=== PATIENT | female | born 1960 | race Caucasian/White ===

== ENCOUNTER 2017-05-28 11:01 | Emergency (ER) | payer MEDICARE, MEDICAID ==
[~2017-05-28] VITALS: Ht 152.4 cm; Wt 115.2 kg
[2017-05-28] MEDS ORDERED: KETOROLAC 30 MG/ML VIAL IVP ONE (11:15)
[2017-05-28] MEDS ORDERED: NS IV 1000 ML 1,000 ML IV SCH (11:15)
--- NOTE | 2017-05-28 11:17 | ED Abdominal Pain ---
General Chief Complaint: Abdominal/GI Problems Stated Complaint: LOWER STOMACH PAIN Source of Information: Patient Exam Limitations: No Limitations History of Present Illness Date Seen by Provider: May 28, 2017 Time Seen by Provider: 11:15 Initial Comments To ER per private vehicle with lower abdominal pain that began on 05/25. She denies fevers chills or nausea. She saw her primary care provider for this yesterday and had CBC, CMP, urinalysis and abdominal x-ray done. She states all of these were normal except for the CBC which showed her white blood cells to be slightly elevated. They did suggest the possibility of diverticulitis though she's never had this before. Pain is worse today rated at 7 out of 10. She presents to the emergency room. She's never had this pain before. She's had a complete hysterectomy, appendectomy, cholecystectomy. Timing/Duration: 3-4 Days Severity/Quality: Moderate Location: Suprapubic Radiation: No Radiation Allergies and Home Medications Allergies Coded Allergies: Penicillins (Verified Allergy, Unknown, 05/28/17) cefixime (Verified Allergy, Unknown, 05/28/17) Review of Systems Constitutional: see HPI, No chills, No fever EENTM: No Symptoms Reported Respiratory: No Symptoms Reported Cardiovascular: No Symptoms Reported Gastrointestinal: See HPI, Abdominal Pain, Denies Constipated, Denies Diarrhea , Denies Nausea, Denies Vomiting Genitourinary: No Symptoms Reported Musculoskeletal: no symptoms reported Skin: no symptoms reported Psychiatric/Neurological: No Symptoms Reported Endocrine: No Symptoms Reported Past Wkyxavg-Gmvdwe-Wqoaqc Hx Patient Social History Recent Foreign Travel: No Contact w/Someone Who Travel: No Physical Exam Vital Signs VS - Last 72 Hours, by Label 05/28/17 11:05 Temp 98.8 Pulse 82 Resp 18 B/P (MAP) 149/85 (106) Pulse Ox 95 Capillary Refill : General Appearance: WD/WN, no apparent distress HEENT: PERRL/EOMI, normal ENT inspection Neck: non-tender, full range of motion Respiratory: no respiratory distress, no accessory muscle use Cardiovascular: regular rate, rhythm, no murmur Gastrointestinal: normal bowel sounds, non tender, soft Extremities: normal range of motion, non-tender Neurologic/Psychiatric: alert, normal mood/affect, oriented x 3 Skin: normal color, warm/dry Progress/Results/Core Measures Results/Orders Lab Results Laboratory Tests Test 05/28/17 11:10 05/28/17 11:18 Range/Units White Blood Count 13.4 H 4.3-11.0 10^3/uL Red Blood Count 4.76 4.35-5.85 10^6/uL Hemoglobin 14.9 11.5-16.0 G/DL Hematocrit 44 35-52 % Mean Corpuscular Volume 92 80-99 FL Mean Corpuscular Hemoglobin 31 25-34 PG Mean Corpuscular Hemoglobin Concent 34 32-36 G/DL Red Cell Distribution Width 13.3 10.0-14.5 % Platelet Count 379 130-400 10^3/uL Mean Platelet Volume 9.2 7.4-10.4 FL Neutrophils (%) (Auto) 60 42-75 % Lymphocytes (%) (Auto) 28 12-44 % Monocytes (%) (Auto) 9 0-12 % Eosinophils (%) (Auto) 3 0-10 % Basophils (%) (Auto) 1 0-10 % Neutrophils # (Auto) 8.0 H 1.8-7.8 X 10^3 Lymphocytes # (Auto) 3.7 1.0-4.0 X 10^3 Monocytes # (Auto) 1.2 H 0.0-1.0 X 10^3 Eosinophils # (Auto) 0.5 H 0.0-0.3 10^3/uL Basophils # (Auto) 0.1 0.0-0.1 10^3/uL Sodium Level 137 135-145 MMOL/L Potassium Level 4.1 3.6-5.0 MMOL/L Chloride Level 105 98-107 MMOL/L Carbon Dioxide Level 20 L 21-32 MMOL/L Anion Gap 12 5-14 MMOL/L Blood Urea Nitrogen 10 7-18 MG/DL Creatinine 0.82 0.60-1.30 MG/DL Estimat Glomerular Filtration Rate > 60 BUN/Creatinine Ratio 12 Glucose Level 122 H 70-105 MG/DL Calcium Level 9.1 8.5-10.1 MG/DL Total Bilirubin 0.3 0.1-1.0 MG/DL Aspartate Amino Transf (AST/SGOT) 15 5-34 U/L Alanine Aminotransferase (ALT/SGPT) 31 0-55 U/L Alkaline Phosphatase 103 40-136 U/L Total Protein 7.2 6.4-8.2 GM/DL Albumin 3.9 3.2-4.5 GM/DL Urine Color YELLOW Urine Clarity SLIGHTLY CLOUDY Urine pH 5 5-9 Urine Specific [place] 1.010 L 1.016-1.022 Urine Protein NEGATIVE NEGATIVE Urine Glucose (UA) NEGATIVE NEGATIVE Urine Ketones NEGATIVE NEGATIVE Urine Nitrite NEGATIVE NEGATIVE Urine Bilirubin NEGATIVE NEGATIVE Urine Urobilinogen NORMAL NORMAL MG/DL Urine Leukocyte Esterase NEGATIVE NEGATIVE Urine RBC (Auto) 1+ H NEGATIVE Urine RBC NONE /HPF Urine WBC NONE /HPF Urine Squamous Epithelial Cells 0-2 /HPF Urine Crystals NONE /LPF Urine Bacteria TRACE /HPF Urine Casts NONE /LPF Urine Mucus NEGATIVE /LPF Urine Culture Indicated NO My Orders Orders - MARSHALL MORRIS APRN Cbc With Automated Diff (05/28/17 11:13) Comprehensive Metabolic Panel (05/28/17 11:13) Ua Culture If Indicated (05/28/17 11:13) Saline Lock/Iv-Start (05/28/17 11:13) Ct Abdomen/Pelvis W (05/28/17 11:13) Ns Iv 1000 Ml (Sodium Chloride 0.9%) (05/28/17 11:15) Ketorolac Injection (Toradol Injection) (05/28/17 11:15) Iohexol Injection (Omnipaque 350 Mg/Ml 1 (05/28/17 11:45) Ns (Ivpb) (Sodium Chloride 0.9% Ivpb Bag (05/28/17 11:45) Ciprofloxacin Tablet (Cipro Tablet) (05/28/17 12:15) Metronidazole Tablet (Flagyl Tablet) (05/28/17 12:15) Hydrocodone/Apap 5/325 Tablet (Lortab 5 (05/28/17 12:15) Medications Given in ED Current Medications Medications Dose Ordered Sig/Heather Route Start Time Stop Time Status Last Admin Dose Admin Iohexol 100 ml ONCE ONCE IV 05/28/17 11:45 05/28/17 12:00 DC 05/28/17 11:55 100 ML Ketorolac Tromethamine 15 mg ONCE ONCE IVP 05/28/17 11:15 05/28/17 11:16 DC 05/28/17 11:25 15 MG Sodium Chloride 100 ml ONCE ONCE IV 05/28/17 11:45 05/28/17 12:00 DC 05/28/17 11:55 100 ML Vital Signs/I&O Vital Sign - Last 12Hours 05/28/17 11:05 Temp 98.8 Pulse 82 Resp 18 B/P (MAP) 149/85 (106) Pulse Ox 95 Departure Impression Impression: Primary Impression: Sigmoid diverticulitis Disposition: 01 HOME, SELF-CARE Condition: Stable Departure-Patient Inst. Decision time for Depature: 12:16 Referrals: JERO GARNER MD (PCP/Family) Primary Care Physician Patient Instructions: Diverticulitis (DC), Diverticulosis Add. Discharge Instructions: 1. Antibiotics as directed 2. Nausea medication and pain medication as directed. Return to ER for any fevers or worsening symptoms 3. Follow-up with your doctor next week for recheck. All discharge instructions reviewed with patient and/or family. Voiced understanding. Scripts Docusate Sodium (Colace) 100 Mg Capsule 100 MG PO DAILY, #14 CAP Prov: MARSHALL MORRIS RECRUITING COORDINATOR 05/28/17 Metronidazole (Metronidazole) 500 Mg Tablet 500 MG PO TID, #21 TAB Prov: MARSHALL MORRIS RECRUITING COORDINATOR 05/28/17 Ciprofloxacin HCl (Cipro) 500 Mg Tablet 500 MG PO BID PRN, #14 TAB Prov: MARSHALL MORRIS RECRUITING COORDINATOR 05/28/17 MARSHALL MORRIS RECRUITING COORDINATOR May 28, 2017 11:16
[2017-05-28 11:20] LABS: BASOPHILS # (AUTO) 0.1 10^3/uL (0.0-0.1); BASOPHILS % (AUTO) 1 % (0-10); EOSINOPHILS # (AUTO) 0.5 10^3/uL (0.0-0.3); EOSINOPHILS % (AUTO) 3 % (0-10); HEMATOCRIT 44 % (35-52); HEMOGLOBIN 14.9 G/DL (11.5-16.0); LYMPHOCYTES # (AUTO) 3.7 X 10^3 (1.0-4.0); LYMPHOCYTES % (AUTO) 28 % (12-44); MEAN CORPUSCULAR HEMOGLOBIN 31 PG (25-34); MEAN CORPUSCULAR HGB CONC 34 G/DL (32-36); MEAN CORPUSCULAR VOLUME 92 FL (80-99); MEAN PLATELET VOLUME 9.2 FL (7.4-10.4); MONOCYTES # (AUTO) 1.2 X 10^3 (0.0-1.0); MONOCYTES % (AUTO) 9 % (0-12); NEUTROPHILS % (AUTO) 60 % (42-75); PLATELET COUNT 379 10^3/uL (130-400); RED BLOOD COUNT 4.76 10^6/uL (4.35-5.85); RED CELL DISTRIBUTION WIDTH 13.3 % (10.0-14.5); WHITE BLOOD COUNT 13.4 10^3/uL (4.3-11.0)
[2017-05-28 11:38] LABS: ALANINE AMINOTRANSFERASE 31 U/L (0-55); ALBUMIN 3.9 GM/DL (3.2-4.5); ALKALINE PHOSPHATASE 103 U/L (40-136); BILIRUBIN,TOTAL 0.3 MG/DL (0.1-1.0); BUN/CREATININE RATIO 12; CALCIUM 9.1 MG/DL (8.5-10.1); CARBON DIOXIDE 20 MMOL/L (21-32); CHLORIDE 105 MMOL/L (98-107); CREATININE SERUM 0.82 MG/DL (0.60-1.30); GFR ESTIMATED > 60; GLUCOSE 122 MG/DL (70-105); POTASSIUM 4.1 MMOL/L (3.6-5.0); SODIUM 137 MMOL/L (135-145); TOTAL PROTEIN 7.2 GM/DL (6.4-8.2)
[2017-05-28] MEDS ORDERED: NS 100 ML (IVPB) BAG IV ONE (11:45)
[2017-05-28] MEDS ORDERED: IOHEXOL 350 MG/ML 100 ML (OMNIPAQUE 350) VIAL IV ONE (11:45)
[2017-05-28 11:54] LABS: BILIRUBIN,URINE NEGATIVE (NEGATIVE); CLARITY,URINE SLIGHTLY CLOUDY; COLOR,URINE YELLOW; GLUCOSE, URINE (UA) NEGATIVE (NEGATIVE); KETONES,URINE NEGATIVE (NEGATIVE); LEUKOCYTE ESTERASE ,URINE NEGATIVE (NEGATIVE); NITRITE,URINE NEGATIVE (NEGATIVE); PH,URINE 5 (5-9); PROTEIN,URINE NEGATIVE (NEGATIVE); UROBILINOGEN,URINE NORMAL (NORMAL)
[2017-05-28 11:57] LABS: BACTERIA,URINE TRACE /HPF; SQUAMOUS EPITHELIAL CELL,UR 0-2 /HPF
[2017-05-28] MEDS ORDERED: CIPROFLOXACIN 500 MG (CIPRO) TABLET PO SCH (12:15)
[2017-05-28] MEDS ORDERED: HYDROcodone/APAP 5 MG/325 MG (LORTAB) TAB PO ONE (12:15)
[2017-05-28] MEDS ORDERED: metroNIDAZOLE 500 MG (FLAGYL) TAB PO ONE (12:15)
[2017-05-28] MEDS ORDERED: DOCU-143 PO (12:18)
[2017-05-28] MEDS ORDERED: METR500T21 PO (12:18)
[2017-05-28] MEDS ORDERED: CIPR-225 PO (12:18)
--- NOTE | 2017-05-28 12:29 | Diagnostic Imaging Report ---
PROCEDURE: CT abdomen and pelvis with contrast. TECHNIQUE: Multiple contiguous axial images were obtained through the abdomen and pelvis after administration of intravenous contrast. INDICATION: Lower abdominal pain with nausea for 4 days. COMPARISON: None FINDINGS: The lung bases are clear. The heart is normal in size. There is no pericardial effusion. There is fatty infiltration of the liver. No focal hepatic lesions are seen. Cholecystectomy clips are noted. The spleen appears normal. The pancreas is unremarkable. The adrenal glands appear normal. The kidneys demonstrate a small hypoattenuating simple appearing cyst in the inferior right kidney, but otherwise unremarkable. No hydronephrosis is seen. The bowel loops are nondistended. There is no evidence of obstruction. The appendix is not seen. There is diverticulosis of the sigmoid colon, with focal area of colonic wall thickening and surrounding pericolonic inflammation at the sigmoid in the left pelvis. No free air or loculated fluid collection is seen. There is trace free fluid in the pelvis. Degenerative changes are noted in the spine with no acute osseous abnormality seen. IMPRESSION: 1. Acute diverticulitis in the sigmoid colon. No free air or pericolonic abscess is seen. Dictated by: Dictated on workstation # [id number]
[2017-05-28 12:53] VITALS: BP 149/85
== END 2017-05-28 12:53 | disposition home or self-care (01) ==
LOC: EDUNIT# 11:01 → ER 11:03
DX: K57.12 Diverticulitis of small intestine without perforation or abscess without bleeding (principal); Z90.49 Acquired absence of other specified parts of digestive tract; Z90.710 Acquired absence of both cervix and uterus; Z88.0 Allergy status to penicillin; Z88.1 Allergy status to other antibiotic agents
CPT/HCPCS: 36415; 74177; 80053; 81000; 85025; 96361; 96374